=== PATIENT | female | born 1955 | race Caucasian/White ===

== ENCOUNTER 2019-09-15 15:47 | Emergency (ER) | payer OTHER, SELFPAY ==
--- NOTE | ~2019-09-15 | XR_ITS ---
EXAMINATION: XR chest 1V portable EXAM DATE: 09/15/2019 17:52 INDICATION: Shortness of breath, fever and cough. TECHNIQUE: Portable AP frontal chest x-ray was obtained. There is no prior study for comparison. FINDINGS: No confluent consolidation, pneumothorax or pleural effusion suspected. Cardiomediastinal s ilhouette is normal. 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 IMPRESSION: No acute cardiopulmonary findings. Reviewed, dictated and finalized at location A.
[2019-09-15 15:54] VITALS: BP 146/86; PULSE 105; RESP 20; TEMP 37.2; O2SAT 100
--- NOTE | 2019-09-15 17:36 | ECG_ITS ---
Measurements Intervals [place] Rate: 91 P: 28 NE: 167 QRS: 15 QRSD: 100 T: 74 QT: 375 QTc: 462 Interpretive Statements SINUS RHYTHM NONSPECIFIC T-WAVE ABNORMALITY- LATERAL LEADS BASELINE WANDER- V6 BORDERLINE ECG Electronically Signed On 09-16-2019 7:13:32 CDT by James Bridges D.O.
[2019-09-15 17:57] VITALS: BP 142/87; PULSE 98; RESP 15; O2SAT 98
[2019-09-15 18:04] LABS: Basophils Absolute Auto 0.1 K/mm3 (0.0-0.1); Eosinophils Absolute Auto 0.1 K/mm3 (0-0.3); Hematocrit 51.8 % (37.0-47.0); Hemoglobin 16.3 g/dL (12.0-15.0); Immature Granulocyte Absolute 0.03 K/mm3 (0.00-0.031); Immature Granulocyte Percent A 0.3 % (0-0.5); Lymphocytes Absolute Auto 1.97 K/mm3 (0.9-3.2); Lymphocytes Percent Auto 20.2 % (18.3-44.2); Mean Corpuscular HGB Conc 31.5 g/dl (32-36); Mean Corpuscular Hemoglobin 26.7 pg (26-34); Mean Corpuscular Volume 84.8 fl (80-100); Mean Platelet Volume 10.4 fl (7.4-10.4); Monocytes Absolute Auto 0.8 K/mm3 (0.1-0.6); Monocytes Percent Auto 8.3 % (2.6-8.5); Neutrophils Absolute Auto 6.7 K/mm3 (1.3-6.7); Neutrophils Percent Auto 69.2 % (45.5-73.1); Platelet Count Result 273 k/mm3 (150-375); Red Blood Count 6.11 M/mm3 (4.2-5.4); Red Cell Distribution Width 15.1 % (11.5-14.5); White Blood Count 9.8 K/mm3 (4.5-10.0)
[2019-09-15 18:17] LABS: Lactic Acid Reflex 1.3 mmol/L (0.7-2.1)
[2019-09-15 18:19] LABS: Alanine Aminotransferase 18 U/L (4-35); Albumin Level 4.3 g/dL (3.5-5.1); Alkaline Phosphatase 145 U/L (38-126); Aspartate Amino Transferase 20 U/L (14-36); Bilirubin,Total 0.3 mg/dL (0.2-1.3); Blood Urea Nitrogen 12 mg/dL (7-17); CRP 1.8 mg/dL (<1.0); Calcium 9.1 mg/dL (8.4-10.2); Carbon Dioxide 30 mmol/L (22-30); Chloride 100 mmol/L (98-107); Estimated CRCL calculation 97 ml/min; Estimated Glomerular Filt Rate > 60; Glucose 130 mg/dL (65-105); Lactate Dehydrogenase 349 U/L (313-618); Potassium 3.8 mmol/L (3.4-5.0); Sodium 136 mmol/L (137-145)
[2019-09-15 18:25] LABS: NT Pro B Type Natriuretic Pept 63 PG/ML (5-100)
[2019-09-15 18:55] VITALS: BP 109/65; PULSE 75; RESP 17; O2SAT 100
--- NOTE | 2019-09-15 19:00 | ED.URI ---
HPI - URI/Sore Throat General Chief Complaint: Upper Respiratory Infection Stated Complaint: Cough, low grade fever Time Seen by Provider: 09/15/19 17:26 Source: patient Mode of arrival: ambulatory Limitations: no limitations History of Present Illness HPI Narrative: This is a 64 year old female that presents to the ER for cough x 1.5 weeks. Reports low grade fever and shortness of breath. Denies chest pain. Review of Systems Review of Systems: Narrative: CONSTITUTIONAL: Reports fever ENT: Reports rhinorrhea, congestion, sore throat CARDIOVASCULAR: Denies chest pain RESPIRATORY: Reports cough and dyspnea. All systems reviewed & are unremarkable except as noted in HPI and below PMFSH Past Medical History Medical History (Updated 09/15/19 @ 19:09 by Amira Higgins PA-C) History of hypertension History of hypothyroidism Exam Narrative: Exam Narrative: GENERAL: Well-appearing, obese, and in no acute distress. HEAD: Normocephalic, atraumatic. EYES: EOMI. ENT: Nares clear, no rhinorrhea or epistaxis. Mucous membranes moist. Oropharynx without tonsillar hypertrophy exudate or other lesions. Bilateral TMs pearly olivares non-bulging NECK: Supple. No adenopathy or masses. CHEST: Clear to auscultation. No respiratory distress. No wheezes rales or rhonchi HEART: Regular rate and rhythm. No murmur heard. Normal peripheral pulses. EXTREMITIES: Normal range of motion. No edema. SKIN: Warm, dry, no rash. NEURO: No focal deficits. Alert and oriented x3. PSYCH: Normal mood and affect Course Vital Signs Vital signs: Vital Signs Temperature 98.9 F 09/15/19 15:54 Pulse Rate 105 H 09/15/19 15:54 Respiratory Rate 20 09/15/19 15:54 Blood Pressure 146/86 H 09/15/19 15:54 Pulse Oximetry 100 09/15/19 15:54 Temperature 98.9 F 09/15/19 15:54 Pulse Rate 75 09/15/19 18:55 Respiratory Rate 17 09/15/19 18:55 Blood Pressure 109/65 09/15/19 18:55 Pulse Oximetry 100 09/15/19 18:55 MDM - URI/Sore Throat MDM Narrative Medical decision making narrative: Patient presents to the emergency department for cough and shortness of breath x1.5 weeks. She is afebrile and nontoxic-appearing. Lungs are clear on exam. CBC without leukocytosis. Metabolic panel without acute changes. Lactic acid is not elevated. CRP is just mildly elevated to 1.8. LDH is not elevated. Chest x-ray without acute findings. EKG without concerning changes. Patient was updated on case findings. She will be treated for acute bronchitis. She is to follow-up with primary care doctor. She is given warnings to return to the ER Lab Data Attestation: I reviewed the patient's lab results. Result diagrams: 09/15/19 17:55 09/15/19 17:55 Labs: Lab Results 09/15/19 09/15/19 09/15/19 Range/Units 17:55 17:55 17:55 WBC 9.8 (4.5-10.0) K/mm3 RBC 6.11 H (4.2-5.4) M/mm3 Hgb 16.3 H (12.0-15.0) g/dL Hct 51.8 H (37.0-47.0) % MCV 84.8 (80-100) fl MCH 26.7 (26-34) pg MCHC 31.5 L (32-36) g/dl RDW 15.1 H (11.5-14.5) % Plt Count 273 (150-375) k/mm3 MPV 10.4 (7.4-10.4) fl Immature Gran % (Auto) 0.3 (0-0.5) % Neut % (Auto) 69.2 (45.5-73.1) % Lymph % (Auto) 20.2 (18.3-44.2) % [place] % (Auto) 8.3 (2.6-8.5) % Eos % (Auto) 1.0 (0-4.4) % Baso % (Auto) 1.0 (0.2-1.2) % Lymph # (Auto) 1.97 (0.9-3.2) K/mm3 [place] # (Auto) 0.8 H (0.1-0.6) K/mm3 Eos # (Auto) 0.1 (0-0.3) K/mm3 Baso # (Auto) 0.1 (0.0-0.1) K/mm3 Abs Immat Gran (auto) 0.03 (0.00-0.031) K/mm3 Absolute Neuts (auto) 6.7 (1.3-6.7) K/mm3 Absolute Nucleated RBC 0.0 (0.0-0.012) K/mm3 Nucleated RBC % 0.0 (0.0-0.2) % Sodium 136 L (137-145) mmol/L Potassium 3.8 (3.4-5.0) mmol/L Chloride 100 (98-107) mmol/L Carbon Dioxide 30 (22-30) mmol/L BUN 12 (7-17) mg/dL Creatinine 0.80 (0.7-1.0) mg/dL Estim Creat Clear Calc 97 ml/min Estimated GFR
[2019-09-15 19:15] VITALS: BP 131/87; PULSE 88; RESP 17; O2SAT 97
== END 2019-09-15 19:15 | disposition home or self-care (01) ==
PROVIDERS: Physician Assistant; Emergency Provider Emergency Medicine
DX: J40 Bronchitis, not specified as acute or chronic (principal); I10 Essential (primary) hypertension; E03.9 Hypothyroidism, unspecified; R94.31 Abnormal electrocardiogram [ECG] [EKG]
CPT/HCPCS: 36415; 71045; 80053; 82728; 83605; 83615; 83880; 85025; 86140; 93005; 99283